=== PATIENT | male | born 1990 | race Caucasian/White ===

== ENCOUNTER 2019-04-20 14:18 | Emergency (ER) | payer OTHER, SELFPAY ==
--- NOTE | 2019-04-20 15:28 | RAD REPORT ---
EXAM DESCRIPTION: RAD - Hand Right 3 View - 04/20/2019 2:56 pm CLINICAL HISTORY: Right hand pain status post injury FINDINGS: Comminuted avulsion fracture distal aspect of the third distal phalanx. The fracture exten ds into the mid aspect of the third distal phalanx No dislocation Old fracture fifth metacarpal
[2019-04-20] MEDS ORDERED: CEFAZOLIN SODIUM 1 GM/VIAL ONE (15:43)
[2019-04-20] MEDS ORDERED: BUPIVACAINE 0.5% PF 10 ML VIAL ONE (15:43)
[2019-04-20] MEDS ORDERED: LIDOCAINE 1% MPF 5 ML VIAL ONE (15:43)
[2019-04-20] MEDS ORDERED: TETANUS & DIPHTHERIA TOX,ADULT 0.5 ML VIAL ONE (15:44)
--- NOTE | 2019-04-20 17:30 | ER ---
Nurse's Notes [facility] Name: Long Kenyon Age: 29 yrs Sex: Male : 1990 Arrival Date: 04/20/2019 Time: 14:20 Bed 25 Private MD: Diagnosis: Laceration without foreign body of right middle finger with damage to nail;Displaced fracture of distal phalanx of right middle finger-Comminuted avulsion fracture of the distal aspect extending into the mid aspect Presentation: 04/20 14:30 Presenting complaint: Patient states: I got my right 3rd finger crushed at work, distal la1 tip. Transition of care: patient was not received from another setting of care. Onset of symptoms was April 20, 2019. Risk Assessment: Do you want to hurt yourself or someone else? Patient reports no desire to harm self or others. Initial Sepsis Screen: Does the patient meet any 2 criteria? No. Patient's initial sepsis screen is negative. Does the patient have a suspected source of infection? No. Patient's initial sepsis screen is negative. Care prior to arrival: None. 14:30 Method Of Arrival: Ambulatory la1 14:30 Acuity: KEKE 3 la1 Historical: - Allergies: 14:31 No Known Allergies; la1 - PMHx: 14:31 None; la1 - Immunization history:: Adult Immunizations up to date. - Social history:: Smoking status: Patient uses tobacco products, smokes one pack cigarettes per day. - Ebola Screening: : No symptoms or risks identified at this time. Screenin:35 Abuse screen: Denies threats or abuse. Denies injuries from another. Nutritional ca1 screening: No deficits noted. Tuberculosis screening: No symptoms or risk factors identified. Fall Risk None identified. Assessment: 14:35 General: Appears in no apparent distress. comfortable, Behavior is calm, cooperative, ca1 appropriate for age. Pain: Complains of pain in dorsal aspect of distal phalanx of right middle finger and palmar aspect of distal phalanx of right middle finger Pain currently is 9 out of 10 on a pain scale. Neuro: Level of Consciousness is awake, alert, obeys commands, Oriented to person, place, time, situation. Derm: Skin is pink, warm \T\ dry. Musculoskeletal: Circulation, motion, and sensation intact. Capillary refill < 3 seconds. 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 Wrapped in occlusive dressing. Bleeding minimal was sustained 1-2 hours ago. 15:32 Reassessment: Patient appears in no apparent distress at this time. Patient and/or ca1 family updated on plan of care and expected duration. Pain level reassessed. Patient is alert, oriented x 3, equal unlabored respirations, skin warm/dry/pink. 16:18 Reassessment: Patient appears in no apparent distress at this time. Patient and/or ca1 family updated on plan of care and expected duration. Pain level reassessed. Patient is alert, oriented x 3, equal unlabored respirations, skin warm/dry/pink. Wound soaked on saline with Betadine per provider instructions. 17:20 Reassessment: Patient appears in no apparent distress at this time. Patient is alert, ca1 oriented x 3, equal unlabored respirations, skin warm/dry/pink. FELICIA Alcocer still at bedside for Lac repair. Vital Signs: 14:31 BP 121 / 86; Pulse 86; Resp 16; Temp 97.1; Pulse Ox 100% on R/A; Weight 68.04 kg; la1 Height 5 ft. 11 in. (180.34 cm); 16:18 BP 126 / 82; Pulse 81; Resp 16 S; Pulse Ox 100% on R/A; ca1 17:52 BP 131 / 79; Pulse 80; Resp 16 S; Pulse Ox 100% on R/A; ca1 14:31 Body Mass Index 20.92 (68.04 kg, 180.34 cm) la1 ED Course: 14:20 Patient arrived in ED. mr 14:31 Triage completed. la1 14:31 Arm band placed on left wrist. la1 14:32 Virginia Espinoza, NICKOLAS is Primary Nurse. ca1 14:35 Patient has correct armband on for positive identification. Bed in low position. Call ca1 light in reach. Side rails up X 1. Pulse ox on. NIBP on. Elevated right hand. 14:47 Ice pack to injury. jp3 14:47 Patient maintains SpO2 saturation greater than 95% on room air. Wound care: ice pack jp3 applied. 14:57 Hand Right 3 View XRAY In Process Unspecified. EDMS 15:03 Leodan Del Real NP is PHCP. pm1 15:03 Shamar Epperson MD is Attending Physician. pm1 17:21 Patient did not have IV access during this emergency room visit. ca1 17:50 Assist provider with laceration repair on right middle finger that was between 2.6 to ca1 7.5 cm using sutures. Set up tray. Performed by Leodan Del Real ZOO VETERINARIAN Dressed with Neosporin, non-adaptic Patient tolerated well. Aluminum finger splint applied to right middle finger. 17:51 Jose Brown MD is Referral Physician. pm1 Administered Medications: 15:58 Drug: Tetanus-Diphtheria Toxoid Adult 0.5 ml {[employer] Industrial [employer] Consultant: [employer]. Exp: ca1 11/14/2020. Lot #: [id number]. } Route: IM; Site: left deltoid; 17:50 Follow up: Response: No adverse reaction ca1 16:01 Drug: Ancef 1 grams Route: IM; Site: right deltoid; ca1 17:50 Follow up: Response: No adverse reaction ca1 16:39 Drug: Marcaine (0.5 %) 10 ml {Note: by FELICIA Alcocer.} Volume: 10 ml; Route: Infiltration;ca1 16:39 Drug: Lidocaine (1 %) 5 ml {Note: by FELICIA Alcocer.} Volume: 5 ml; Route: Infiltration; ca1 Outcome: 17:29 Discharge ordered by . pm1 17:57 Discharged to home ambulatory, with friend. ca1 17:57 Condition: stable 17:57 Discharge instructions given to patient, Instructed on discharge instructions, follow up and referral plans. no drinking with medication, no driving heavy equipment, medication usage, wound care, Demonstrated understanding of instructions, follow-up care, medications, wound care, splint care, Prescriptions given X 3. 17:58 Patient left the ED. ca1 Signatures: Dispatcher [employer] [facility] Shawna Page Tavon Dalton, RN RN la1 Leodan Del Real NP ZOO VETERINARIAN pm1 Kam Louis jp3 Virginia Espinoza RN RN ca1
--- NOTE | 2019-04-20 17:30 | EDPHYS ---
Physician Documentation [facility] Name: Long Kenyon Age: 29 yrs Sex: Male : 1990 Arrival Date: 04/20/2019 Time: 14:20 Bed 25 Private MD: ED Physician Shamar Epperson HPI: 04/20 16:05 This 29 yrs old Male presents to ER via Ambulatory with complaints of Crush pm1 Injury - Finger. 16:05 Trauma demographics: Location of Injury: The injury occurred at work. Mechanism of pm1 injury: Crush injury: from wrench against the frame of machine crushed the patient's finger. Associated injuries: The patient sustained right middle finger. Onset: The symptoms/episode began/occurred today. The patient has not experienced similar symptoms in the past. The patient has been recently seen by a physician: [facility], referred the patient to ER. Historical: - Allergies: 14:31 No Known Allergies; la1 - PMHx: 14:31 None; la1 - Immunization history:: Adult Immunizations up to date. - Social history:: Smoking status: Patient uses tobacco products, smokes one pack cigarettes per day. - Ebola Screening: : No symptoms or risks identified at this time. ROS: 16:05 Constitutional: Negative for fever, chills, and weight loss. pm1 16:05 Abdomen/GI: Negative for nausea, vomiting. 16:05 MS/extremity: Positive for laceration, pain, of the right middle finger. 16:05 Skin: Positive for laceration(s), of the right middle finger. 16:05 Neuro: Negative for numbness, tingling. 16:05 All other systems are negative. Exam: 16:05 Constitutional: This is a well developed, well nourished patient who is awake, alert, pm1 and in no acute distress. Head/Face: Normocephalic, atraumatic. Neck: Trachea midline, no thyromegaly or masses palpated, and no cervical lymphadenopathy. Supple, full range of motion without nuchal rigidity, or vertebral point tenderness. No Meningismus. Chest/axilla: Normal chest wall appearance and motion. Nontender with no deformity. No lesions are appreciated. Cardiovascular: Regular rate and rhythm with a normal S1 and S2. No gallops, murmurs, or rubs. Normal PMI, no JVD. No pulse deficits. Respiratory: Lungs have equal breath sounds bilaterally, clear to auscultation and percussion. No rales, rhonchi or wheezes noted. No increased work of breathing, no retractions or nasal flaring. Back: No spinal tenderness. No costovertebral tenderness. Full range of motion. 16:05 Skin: Appearance: normal except for affected area, injury, laceration(s), the wound is approximately 3 cm(s), of the dorsal aspect of distal phalanx of right middle finger, that can be described as no foreign body, irregular, without bleeding. 16:05 Neuro: Orientation: is normal, Motor: is normal, moves all fours, Sensation: is normal, no obvious gross deficits, Gait: is steady, at a normal pace, without difficulty. Vital Signs: 14:31 BP 121 / 86; Pulse 86; Resp 16; Temp 97.1; Pulse Ox 100% on R/A; Weight 68.04 kg; la1 Height 5 ft. 11 in. (180.34 cm); 16:18 BP 126 / 82; Pulse 81; Resp 16 S; Pulse Ox 100% on R/A; ca1 17:52 BP 131 / 79; Pulse 80; Resp 16 S; Pulse Ox 100% on R/A; ca1 14:31 Body Mass Index 20.92 (68.04 kg, 180.34 cm) la1 Laceration: 17:26 Wound Repair of 3cm ( 1.2in ) subcutaneous laceration to dorsal aspect of distal pm1 phalanx of right middle finger. Irregularly shaped.. Distal neuro/vascular/tendon intact. Anesthesia: Local anesthetic administered with 1 mls of Lido/Marcaine. Wound prep: Extensive cleansing with betadine with hibiclenz by ia, Wound irrigation with saline by ia, Wound explored extensively, Copious irrigation. Skin closed with 14 5-0 Prolene using simple sutures and sterile technique. Dressed with Neosporin, splint and tube gauze. Patient tolerated well. MDM: 15:24 Patient medically screened. pm1 17:28 Data reviewed: vital signs. Data interpreted: Pulse oximetry: on room air is 100 %. pm1 Interpretation: normal. Counseling: I had a detailed discussion with the patient and/or guardian regarding: the historical points, exam findings, and any diagnostic results supporting the discharge/admit diagnosis, radiology results, the need for outpatient follow up, a hand specialist, to return to the emergency department if symptoms worsen or persist or if there are any questions or concerns that arise at home. 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 Exp: ca1 11/14/2020. Lot #: [id number]. } Route: IM; Site: left deltoid; 17:50 Follow up: Response: No adverse reaction ca1 16:01 Drug: Ancef 1 grams Route: IM; Site: right deltoid; ca1 17:50 Follow up: Response: No adverse reaction ca1 16:39 Drug: Marcaine (0.5 %) 10 ml {Note: by Leodan, DRUG ABUSE SOCIAL WORKER.} Volume: 10 ml; Route: Infiltration;ca1 16:39 Drug: Lidocaine (1 %) 5 ml {Note: by Leodan, DRUG ABUSE SOCIAL WORKER.} Volume: 5 ml; Route: Infiltration; ca1 Disposition: 04/20/19 17:29 Discharged to Home. Impression: Displaced fracture of distal phalanx of right middle finger - Comminuted avulsion fracture of the distal aspect extending into the mid aspect, Laceration without foreign body of right middle finger with damage to nail. - Condition is Stable. - Discharge Instructions: Finger Fracture, Laceration Care, Adult, Crush Injury of the Hand. - Prescriptions for Keflex 500 mg Oral Capsule - take 1 capsule by ORAL route every 6 hours for 10 days; 40 capsule. Tylenol- Codeine #3 300-30 mg Oral Tablet - take 2 tablets by ORAL route every 6 hours As needed; 20 tablet. Bactrim DS 800- 160 mg Oral Tablet - take 1 tablet by ORAL route every 12 hours for 10 days; 20 tablet. - Medication Reconciliation Form, Thank You Letter, Antibiotic Education, Prescription Opioid Use, Work release form form. - Follow up: Emergency Department; When: As needed; Reason: Worsening of condition. Follow up: Private Physician; When: 2 - 3 days; Reason: Recheck today's complaints, Continuance of care, Re-evaluation by your physician. Follow up: Jose Brown MD; When: 2 - 3 days; Reason: Wound Recheck, Recheck today's complaints, Continuance of care, Re-evaluation by your physician. - Problem is new. - Symptoms have improved. Addendum: 04/24/2019 06:59 Co-signature as Attending Physician, Shamar Epperson MD. r n Signatures: Dispatcher [employer] EDMS Shamar Epperson MD MD rn Attema, Lee, RN RN la1 Leodan Del Real, DRUG ABUSE SOCIAL WORKER DRUG ABUSE SOCIAL WORKER pm1 Virginia Espinoza RN RN ca1 Corrections: (The following items were deleted from the chart) 04/20 17:40 17:29 04/20/2019 17:29 Discharged to Home. Impression: Laceration without foreign body pm1 of right middle finger with damage to nail. Condition is Stable. Forms are Medication Reconciliation Form, Thank You Letter, Antibiotic Education, Prescription Opioid Use. Follow up: Emergency Department; When: As needed; Reason: Worsening of condition. Follow up: Private Physician; When: 2 - 3 days; Reason: Recheck today's complaints, Continuance of care, Re-evaluation by your physician. Problem is new. Symptoms have improved. pm1 17:51 17:40 04/20/2019 17:29 Discharged to Home. Impression: Displaced fracture of distal pm1 phalanx of right middle finger - Comminuted avulsion fracture of the distal aspect extending into the mid aspectLaceration without foreign body of right middle finger with damage to nail. Condition is Stable. Discharge Instructions: Crush Injury of the Hand. Forms are Medication Reconciliation Form, Thank You Letter, Antibiotic Education, Prescription Opioid Use. Follow up: Emergency Department; When: As needed; Reason: Worsening of condition. Follow up: Private Physician; When: 2 - 3 days; Reason: Recheck today's complaints, Continuance of care, Re-evaluation by your physician. Problem is new. Symptoms have improved. pm1 17:58 17:51 04/20/2019 17:29 Discharged to Home. Impression: Displaced fracture of distal ca1 phalanx of right middle finger - Comminuted avulsion fracture of the distal aspect extending into the mid aspectLaceration without foreign body of right middle finger with damage to nail. Condition is Stable. Discharge Instructions: Crush Injury of the Hand, Finger Fracture, Laceration Care, Adult. Prescriptions for Keflex 500 mg Oral Capsule - take 1 capsule by ORAL route every 6 hours for 10 days; 40 capsule, Tylenol-Codeine #3 300-30 mg Oral Tablet - take 2 tablets by ORAL route every 6 hours As needed; 20 tablet, Bactrim DS 800-160 mg Oral Tablet - take 1 tablet by ORAL route every 12 hours for 10 days; 20 tablet. and Forms are Medication Reconciliation Form, Thank You Letter, Antibiotic Education, Prescription Opioid Use, Work release form. Follow up: Emergency Department; When: As needed; Reason: Worsening of condition. Follow up: Private Physician; When: 2 - 3 days; Reason: Recheck today's complaints, Continuance of care, Re-evaluation by your physician. Follow up: Jose Brown; When: 2 - 3 days; Reason: Wound Recheck, Recheck today's complaints, Continuance of care, Re-evaluation by your physician. Problem is new. Symptoms have improved. pm1
[2019-04-20 18:26] VITALS: TEMP 97.1; O2SAT 100
[2019-04-20 18:28] VITALS: BP 131/79
== END 2019-04-20 17:58 | disposition home or self-care (01) ==
LOC: ER 14:18
PROC: 0JQJ0ZZ Repair Right Hand Subcutaneous Tissue and Fascia, Open Approach (ICD-10-PCS; principal; 2019-04-20)
DX: S61.312A Laceration without foreign body of right middle finger with damage to nail, initial encounter (principal); S62.632A Displaced fracture of distal phalanx of right middle finger, initial encounter for closed fracture; F17.210 Nicotine dependence, cigarettes, uncomplicated; W31.89XA Contact with other specified machinery, initial encounter; Y93.89 Activity, other specified; Y92.89 Other specified places as the place of occurrence of the external cause; Y99.8 Other external cause status; Z23 Encounter for immunization
CPT/HCPCS: 90471; 90714; 96372; 99285; J0690